=== PATIENT | male | born 1950 | race Caucasian/White ===

== ENCOUNTER 2022-08-25 09:38 | Outpatient (CLI) | payer MEDICARE, BC ==
[2022-08-25 10:46] LABS: #Basophils 0.1 10x3/uL (0.0-0.2); #Eosinphils 0.1 10x3/uL (0.0-0.5); #Monocytes 0.6 10x3/uL (0.0-1.1); #Neutrophils 3.6 10x3/uL (1.5-8.4); %Basophils 1.4 % (0.0-2.0); %Eosinophils 1.4 % (0.0-6.0); %Lymphocytes 25.9 % (18.0-47.0); %Monocytes 9.4 % (0.0-10.0); %Neutrophils 61.6 % (40.0-75.0); Hemoglobin 15.2 g/dL (13.5-17.5); Mean Corpuscular HGB CONC 33.3 g/dL (32.0-36.0); Mean Corpuscular Hemoglobin 31.4 pg (27.0-33.0); Mean Corpuscular Volume 94.2 fl (81.2-95.1); Mean Platelet Volume 10.5 fl (7.4-10.4); Platelet Count 241 10x3/uL (150-450); RBC Distribution Width 13.7 % (11.5-14.5); Red Blood Cell (RBC) Count 4.84 10x6/uL (4.32-5.72); White Blood Cell (WBC) Count 5.9 10x3/uL (3.5-10.5)
[2022-08-25 11:00] LABS: ALT (SGPT) 17 U/L (8-55); AST (SGOT) 23 U/L (5-34); Albumin 4.3 g/dL (3.4-4.8); Alkaline Phosphatase 78 U/L (40-110); Anion Gap 12 mmol/L (10-20); BUN (Urea Nitrogen) 15 mg/dL (8.4-25.7); Bilirubin, Total 0.6 mg/dL (0.2-1.2); Calc. Creatinine Clearance 0 mL/min (70-130); Calcium 9.3 mg/dL (7.8-10.44); Carbon Dioxide 28 mmol/L (23-31); Chloride 104 mmol/L (98-107); Estimated GFR 66; Globulin 2.3 g/dL (2.4-3.5); Glucose 86 mg/dL (83-110); Potassium 4.6 mmol/L (3.5-5.1); Protein, Total 6.6 g/dL (5.8-8.1); Sodium 139 mmol/L (136-145)
== END 2022-08-25 09:39 | disposition home or self-care (01) ==
LOC: LABBT 09:38
PROVIDERS: ATTEND Surgery
DX: Z01.818 Encounter for other preprocedural examination (principal); K40.91 Unilateral inguinal hernia, without obstruction or gangrene, recurrent
CPT/HCPCS: 80053; 85025; 93005; 93010

== ENCOUNTER 2022-08-27 08:24 | Day surgery (SDC) | payer MEDICARE, BC ==
[2022-08-25 10:07] VITALS: BMI 24.5
[2022-08-27] MEDS ORDERED: Bupivacaine/Epinephrine 0.25% 30 ML VIAL ONE (12:01)
[2022-08-27] MEDS ORDERED: fentaNYL PF 100 MCG/2 ML SYRINGE ONE (12:03)
[2022-08-27] MEDS ORDERED: HYDROmorphone 2 MG/ML VIAL ONE (12:04)
[2022-08-27] MEDS ORDERED: Levofloxacin 500 mg/D5W 100 ml Premix Bag ONE (12:12)
[2022-08-27] MEDS ORDERED: Ondansetron PF 4 MG/2 ML Vial ONE (12:40)
[2022-08-27] MEDS ORDERED: Ketorolac Tromethamine 30 MG/ML VIAL ONE (12:40)
[2022-08-27] MEDS ORDERED: PHENYLEPHRINE-NS 100 MCG/ML 10 ML SYRINGE ONE (12:40)
[2022-08-27] MEDS ORDERED: Metoclopramide HCl 10 MG/2 ML VIAL ONE (12:40)
[2022-08-27] MEDS ORDERED: PROPOFOL 200 MG/20 ML VIAL ONE (12:40)
[2022-08-27] MEDS ORDERED: Rocuronium Bromide 10 MG/ML (10ML VIAL) ONE (12:40)
[2022-08-27] MEDS ORDERED: Lidocaine 1% PF 5 ML VIAL ONE (12:40)
[2022-08-27] MEDS ORDERED: Dexamethasone 20 MG/5 ML VIAL ONE (12:40)
[2022-08-27] MEDS ORDERED: fentaNYL 50 mcg/mL 1 mL Vial ONE (13:53)
[2022-08-27] MEDS ORDERED: HYDROcodone/Acetaminophen 5/325 mg Tablet ONE (15:12)
== END 2022-08-27 15:47 | disposition home or self-care (01) ==
LOC: SDC 08:24
PROVIDERS: ATTEND Surgery
PROC: 0YU54JZ Supplement Right Inguinal Region with Synthetic Substitute, Percutaneous Endoscopic Approach (ICD-10-PCS; principal; 2022-08-27)
PROC: 8E0W4CZ Robotic Assisted Procedure of Trunk Region, Percutaneous Endoscopic Approach (ICD-10-PCS; 2022-08-27)
DX: K40.91 Unilateral inguinal hernia, without obstruction or gangrene, recurrent (principal); Z88.0 Allergy status to penicillin; Z88.5 Allergy status to narcotic agent; Z88.8 Allergy status to other drugs, medicaments and biological substances
CPT/HCPCS: 49651; J3010; C1781; J1100; J1170; J1885; J1956; J2405; J2704; J2765